=== PATIENT | male | born 1975 | race Two or more races ===

== ENCOUNTER 2021-11-08 19:13 | Emergency (ER) | payer BC ==
[2021-11-08 22:02] VITALS: TEMP 98.1
[2021-11-08] MEDS ORDERED: SODIUM CHLORIDE 0.9% 50 ML IVPB ONE (23:45)
[2021-11-09] MEDS ORDERED: BAMLANIVIMAB (EUA) 700 MG, ETESEVIMAB (EUA) 1,400 MG in SODIUM CHLORIDE 0.9% 50 ML IVPB ONE ×3
--- NOTE | 2021-11-09 | XR ---
EXAMINATION TYPE: XR chest 2V DATE OF EXAM: 11/08/2021 COMPARISON: NONE HISTORY: Chest pain TECHNIQUE: 2 views FINDINGS: Heart is normal. There is large calcified granuloma at the left pulmonary hilum. There is n o pleural effusion. Mediastinum is normal. Bony thorax is intact. IMPRESSION: No active cardiopulmonary disease. Normal heart.
--- NOTE | 2021-11-09 01:26 | ED ---
General Adult HPI - General Chief complaint: Upper Respiratory Infection Stated complaint: COVID+, BAM Time Seen by Provider: 11/08/21 22:56 Source: patient, family Mode of arrival: ambulatory Limitations: no limitations - History of Present Illness Initial comments: 46 year-old male patient presents to the emergency department requesting monoclonal antibodies after testing positive for COVID. States he has had symptoms since last week, but developed right sided chest tightness over the last 24 hours so called his physician. States he is taking steroids and azithromycin currently. States his physician wanted him to come in for antibodies, chest xray/or CT chest, and to be given budesonide. He states he is eating and drinking well. Denies significant shortness of breath. Does become winded. He has history of Crohn's disease and is currently maintained on Stelara. - Related Data Previous Rx's Medication Instructions Recorded Budesonide [Pulmicort Flexhaler] 2 puff INHALATION BID #1 each 11/09/21 Allergies Allergy/AdvReac Type Severity Reaction Status Date / Time infliximab [From Remicade] Allergy Chest Pain Verified 11/08/21 22:01 Review of Systems ROS Statement: Those systems with pertinent positive or pertinent negative responses have been documented in the HPI. ROS Other: All systems not noted in ROS Statement are negative. Past Medical History Past Medical History: Asthma Additional Past Medical History / Comment(s): chrohns History of Any Multi-Drug Resistant Organisms: None Reported Past Surgical History: Bariatric Surgery, Hernia Repair Past Psychological History: Anxiety, Depression Smoking Status: Never smoker Past Alcohol Use History: Occasional Past Drug Use History: None Reported General Exam Limitations: no limitations General appearance: alert, in no apparent distress, other (This is a well- developed, well-nourished adult male patient in no acute distress.) ENT exam: Present: normal exam, normal oropharynx, mucous membranes moist Respiratory exam: Present: normal lung sounds bilaterally. Absent: respiratory distress, wheezes, rales, rhonchi, stridor Cardiovascular Exam: Present: regular rate, normal rhythm, normal heart sounds. Absent: systolic murmur, diastolic murmur, rubs, gallop, clicks GI/Abdominal exam: Present: soft, normal bowel sounds. Absent: distended, tenderness, guarding, rebound, rigid Neurological exam: Present: alert, oriented X3, CN II-XII intact Psychiatric exam: Present: normal affect, normal mood Skin exam: Present: warm, dry, intact, normal color. Absent: rash Course Vital Signs 11/08/21 11/09/21 21:56 01:32 Temperature 98.1 F Pulse Rate 68 78 Respiratory 22 16 Rate Blood Pressure 139/84 135/83 O2 Sat by Pulse 100 97 Oximetry Medical Decision Making - Medical Decision Making 46-year-old male patient presenting for a monoclonal antibody infusion after testing positive about a week ago. Physical examination did reveal clear equal lung sounds. Vital signs are within normal range, oxygen saturation is 100% on room air. Chest x-ray is negative. He did have history of chest pain with infusions of infliximab. States he had chest discomfort with every infusion over a 4 year period. His symptoms never worsened. He is currently maintained on Gru[place]ager. We did go ahead with a monoclonal antibody infusion and he tolerated this well. He will be discharged with a prescription for Pulmicort inhaler. Instructed to continue his home medications. Is instructed to follow- up with his primary care physician for recheck in 1-2 days. Return parameters were discussed in detail. He verbalizes understanding and agrees with this plan. My attending is Dr. Gomez. - Radiology Data Radiology results: report reviewed, image reviewed Two-view x-ray of the chest is obtained. Report was reviewed in its entirety. Impression by Dr. Rm shows no active cardiopulmonary disease. Normal heart. Disposition Clinical Impression: COVID-19 Disposition: HOME SELF-CARE Condition: Good Instructions (If sedation given, give patient instructions): Coronavirus Disease 2019 (COVID-19) Additional Instructions: Tips to help you feel better: -Maintain adequate fluid intake - especially water. -Rest, you are healing your body will require extra sleep. -Eat even if you do not feel like it - broth, jello, toast are fine if you cannot eat full meals. -Take tylenol and motrin alternating (if you have no allergies or have not been instructed to avoid these medications) to help with body aches and fevers. -Obtain over the counter vitamin C, zinc, and vitamin D3. -Take medications as prescribed. Follow-up with your primary care physician for recheck in 1-2 days. Return for any new, worsening, or concerning symptoms. Prescriptions: Budesonide [Pulmicort Flexhaler] 2 puff INHALATION BID #1 each Is patient prescribed a controlled substance at d/c from ED?: No Referrals: Bentley James MD [Primary Care Provider] - 1-2 days Time of Disposition: 01:26
[2021-11-09 01:32] VITALS: BP 135/83; PULSE 78; RESP 16
== END 2021-11-09 01:33 | disposition home or self-care (01) ==
LOC: EC 19:13
DX: U07.1 COVID-19 (principal); J45.909 Unspecified asthma, uncomplicated; F41.9 Anxiety disorder, unspecified; F32.A Depression, unspecified; Z72.89 Other problems related to lifestyle
CPT/HCPCS: 71046; 99284; J3490